=== PATIENT | female | born 1945 | race Caucasian/White ===

== ENCOUNTER 2017-07-04 01:49 | Inpatient (IN) | payer OTHER ==
[2017-07-04] VITALS (7 sets, daily range): BP systolic 92–152; BP diastolic 62–92; PULSE 69–140; TEMP 36–37.2; O2SAT 93–97; Ht 165.1 cm; Wt 82.8 kg
[~2017-07-04] VITALS: Ht 165.1 cm; Wt 82.8 kg
[~2017-07-04 01:49] MED LIST: BUDE180I; CALCTAB5 PO; DABI150C PO; GFNSR600 PO; HYDR12.55 PO; LPR25 PO; MAGN400T6 PO; MULT-506 PO; SNG10 PO; VITA400C15 PO; XPNIN INH; ZNTT/150 PO
[2017-07-04] MEDS ORDERED: METOPROLOL TARTRATE 1 MG/ML VIAL IV STA (02:06)
--- NOTE | 2017-07-04 02:15 | EMERGENCY ROOM VISIT NOTE ---
History Report prepared by [place]: Miguel Vaca Under the Supervision of: Dr. Rachell Carty D.O. First contact with patient: 01:56 Chief Complaint: TACHYCARDIA Stated Complaint: HEART RACING History of Present Illness The patient is a 71 year old female who presents to the Emergency Room with complaints of a persistent rapid heart rate that she first experienced after dinner this evening at 1900, 7 hours prior to arrival. The patient states that she tried to sit down and relax while watching television. She went to sleep at 2330 and woke up at 0030 and was still experiencing the rapid rate. The patient did have a similar episode 4 years ago and was diagnosed by her software release engineer with Atrial Flutter. She has not had any such episodes since then. She denies any urinary/bowel movement irregularities or abdominal pain. The patient was recently put on Prednisone by her PCP for asthma. Today is the 5th day she has taken this prescription. The patient takes Pradaxa as a blood thinner. 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 A total of 10 systems reviewed and were otherwise negative. Past Medical & Surgical Medical Problems: (1) ASTHMA, UNSPECIFIED (2) HX OF BREAST MALIGNANCY (3) HYPERTENSION NOS Family History Cancer Heart disease Hypertension Social History Smoking Status: Former Smoker Marital Status: Housing Status: lives with family Current/Historical Medications Scheduled Atorvastatin (Lipitor), 10 MG PO DAILY Budesonide (Inhalation) (Pulmicort Flexhaler), 1 PUFF BID Calcium Carbonate (Caltrate 600), 1,500 MG PO DAILY Dabigatran Etexilate Mesylate (Pradaxa), 150 MG PO Q12 Guaifenesin Ext Rel (Mucinex Ext Rel), 600 MG PO DAILY Hydrochlorothiazide (Hydrochlorothiazide), 12.5 MG PO DAILY Magnesium Oxide (Mag-Ox), 400 MG PO DAILY Metoprolol Tartrate (Lopressor), 12.5 MG PO BID Montelukast Sodium (Singulair), 10 MG PO DAILY Multiple Vitamins W/ Minerals (Centrum Silver Adult 50+), 1 TAB PO DAILY Ranitidine (Zantac), 300 MG PO HS Vitamin E (Vitamin E 400 Iu), 400 INTER.UNIT PO DAILY Scheduled PRN Ibuprofen (Advil), 200-600 MG PO Q4H PRN for Headache Levalbuterol Tartrate (Levalbuterol Tartrate Hfa), 2 PUFFS PO Q6 PRN for SOB/ Wheezing Allergies Coded Allergies: Lobster (Verified Allergy, Intermediate, NAUSEA & DIARRHEA, 07/04/17) Latex (Unverified Allergy, Mild, rash,itchy, 07/04/17) Physical Exam Vital Signs Date Time Temp Pulse Resp B/P (MAP) Pulse Ox O2 Delivery O2 Flow Rate FiO2 07/04/17 04:05 103 20 153/86 95 Room Air 07/04/17 03:08 86 20 114/73 95 Room Air 07/04/17 02:44 99 20 120/84 94 Room Air 07/04/17 02:35 126 20 141/106 95 Room Air 07/04/17 02:23 130 20 170/81 96 Room Air 07/04/17 02:20 95 Room Air 07/04/17 02:16 150 146/118 07/04/17 02:06 130 07/04/17 01:51 36.7 137 20 197/114 97 Room Air Physical Exam GENERAL: alert, well appearing, well nourished, no distress, non-toxic EYE EXAM: normal conjunctiva, PERRL and EOM's grossly intact OROPHARYNX: no exudate, no erythema, lips, buccal mucosa, and tongue normal and mucous membranes are moist NECK: supple, no nuchal rigidity, no adenopathy, non-tender LUNGS: Clear to auscultation. Normal chest wall mechanics HEART: Tachycardic and irregular. ABDOMEN: abdomen soft, non-tender, normo-active bowel sounds, no masses, no rebound or guarding. BACK: Back is symmetrical on inspection and there is no deformity, no midline tenderness, no CVA tenderness. SKIN: no rashes and no bruising UPPER EXTREMITIES: upper extremities are grossly normal. LOWER EXTREMITIES: No pitting edema. NEURO EXAM: Normal sensorium Medical Decision & Procedures ER Provider Diagnostic Interpretation: Radiology results have been interpreted and reviewed by me. CHEST X-RAY: A study of the chest was reviewed and was negative for infiltrate, effusion, pneumothorax, or wide mediastinum. Laboratory Results 07/04/17 02:10 Red Blood Count 4.75, Mean Corpuscular Volume 92.2, Mean Corpuscular Hemoglobin 30.1, Mean Corpuscular Hemoglobin Concent 32.6, Mean Platelet Volume 10.1, Neutrophils (%) (Auto) 67.5, Lymphocytes (%) (Auto) 24.2, Monocytes (%) (Auto) 7.2, Eosinophils (%) (Auto) 0.4, Basophils (%) (Auto) 0.3, Neutrophils # (Auto) 5.10, Lymphocytes # (Auto) 1.83, Monocytes # (Auto) 0.54, Eosinophils # (Auto) 0.03, Basophils # (Auto) 0.02 07/04/17 02:10 Test 07/04/17 02:10 07/04/17 03:10 White Blood Count 7.55 K/uL (4.8-10.8) Red Blood Count 4.75 M/uL (4.2-5.4) Hemoglobin 14.3 g/dL (12.0-16.0) Hematocrit 43.8 % (37-47) Mean Corpuscular Volume 92.2 fL (80-100) Mean Corpuscular Hemoglobin 30.1 pg (25-34) Mean Corpuscular Hemoglobin Concent 32.6 g/dl (32-36) Platelet Count 265 K/uL (130-400) Mean Platelet Volume 10.1 fL (7.4-10.4) Neutrophils (%) (Auto) 67.5 % Lymphocytes (%) (Auto) 24.2 % Monocytes (%) (Auto) 7.2 % Eosinophils (%) (Auto) 0.4 % Basophils (%) (Auto) 0.3 % Neutrophils # (Auto) 5.10 K/uL (1.4-6.5) Lymphocytes # (Auto) 1.83 K/uL (1.2-3.4) Monocytes # (Auto) 0.54 K/uL (0.11-0.59) Eosinophils # (Auto) 0.03 K/uL (0-0.5) Basophils # (Auto) 0.02 K/uL (0-0.2) RDW Standard Deviation 45.2 fL (36.4-46.3) RDW Coefficient of Variation 13.5 % (11.5-14.5) Immature Granulocyte % (Auto) 0.4 % Immature Granulocyte # (Auto) 0.03 K/uL (0.00-0.02) Prothrombin Time 13.9 SECONDS (9.0-12.0) Prothromb Time International Ratio 1.3 (0.9-1.1) Anion Gap 4.0 mmol/L (3-11) Est Creatinine Clear Calc Drug Dose 58.2 ml/min Estimated GFR () 68.6 Estimated GFR (Non- 59.2 BUN/Creatinine Ratio 26.1 (10-20) Calcium Level 8.9 mg/dl (8.5-10.1) Magnesium Level 2.2 mg/dl (1.8-2.4) Total Bilirubin 0.4 mg/dl (0.2-1) Aspartate Amino Transf (AST/SGOT) 14 U/L (15-37) Alanine Aminotransferase (ALT/SGPT) 24 U/L (12-78) Alkaline Phosphatase 73 U/L (45-117) Troponin I < 0.015 ng/ml (0-0.045) Total Protein 7.6 gm/dl (6.4-8.2) Albumin 3.6 gm/dl (3.4-5.0) Globulin 4.0 gm/dl (2.5-4.0) Albumin/Globulin Ratio 0.9 (0.9-2) Thyroid Stimulating Hormone (TSH) 1.810 uIu/ml (0.300-4.500) Urine Color YELLOW Urine Appearance CLEAR (CLEAR) Urine pH 7.5 (4.5-7.5) Urine Specific [place] 1.012 (1.000-1.030) Urine Protein NEG (NEG) Urine Glucose (UA) NEG (NEG) Urine Ketones NEG (NEG) Urine Occult Blood NEG (NEG) Urine Nitrite NEG (NEG) Urine Bilirubin NEG (NEG) Urine Urobilinogen NEG (NEG) Urine Leukocyte Esterase NEG (NEG) Laboratory results per my review. Medications Administered Medications (Trade) Dose Ordered Sig/Phil Route Start Time Stop Time Status Last Admin Dose Admin Metoprolol Tartrate (Lopressor Iv) 5 mg NOW STAT IV 07/04/17 02:06 07/04/17 02:09 DC 07/04/17 02:16 5 MG Diltiazem HCl (Cardizem Inj) 25 mg STK-MED ONCE .ROUTE 07/04/17 02:30 07/04/17 02:31 DC 07/04/17 02:36 15 MG Diltiazem HCl 125 mg/Dextrose 125 ml @ 0 mls/hr Q0M STAT IV 07/04/17 02:33 07/04/17 02:34 DC 07/04/17 02:41 5 MLS/HR ECG Indication: tachycardia (w RVR) Rate (beats per minute): 133 Rhythm: atrial fibrillation Findings: ST depression (Question ST-Depression in V4,V5,V6), other (Normal axis, Normal QRS) ED Course 0158: The patient was evaluated in room B2. A complete history and physical exam was performed. 0206: Ordered Metoprolol 5 mg IV. 0223: I reevaluated the patient at this time. She has had no improvement with Metoprolol, I will ordered Cardizem. 0225: Ordered Cardizem Bolus 125 mL @ Protocol IV. 0249: The nursing staff has informed me that the patient is much improved after Cardizem. 0315: I reevaluated the patient at this time. She if feeling much better. 0408: I checked on the patient at this time. She feels good, but the Cardizem drip needed to be bumped to 10. 0423: I discussed the case with Dr. Angelica Hubbard, he will evaluate the patient for further treatment. Medical Decision Differential diagnosis: Etiologies such as premature contractions, electrolyte abnormality, cardiac dysrhythmia, thyroid dysfunction, pulmonary embolism, infection, gastrointestinal, as well as others were entertained. Consults Time Called: [phone] Consulting Physician: Dr. Angelica Hubbard Returned Call: [phone] discussed the case with Dr. Angelica Hubbard, he will evaluate the patient for further treatment. Impression Primary Impression: Atrial fibrillation with RVR Additional Impression: Palpitations Critical Care I have personally spent 40 minutes of critical care time in the direct management of this patient. This includes bedside care, interpretation of diagnostic studies, and testing, discussion with consultants, patient, and family members, and other required patient management activities. This 40 minutes is in excess of all separately billable procedures. Scribe Attestation The scribe's documentation has been prepared under my direction and personally reviewed by me in its entirety. I confirm that the note above accurately reflects all work, treatment, procedures, and medical decision making performed by me. Departure Information Dispostion Being Evaluated By Hospitalist Referrals Cosme Willis M.D. (PCP) Patient Instructions My [facility] [address] Problem Qualifiers
[2017-07-04 02:21] LABS: BASO % 0.3 %; BASO ABS # 0.02 K/uL (0-0.2); EOS % 0.4 %; EOS ABS # 0.03 K/uL (0-0.5); HEMATOCRIT 43.8 % (37-47); HEMOGLOBIN 14.3 g/dL (12.0-16.0); IG# 0.03 K/uL (0.00-0.02); LYMPH % 24.2 %; LYMPH ABS # 1.83 K/uL (1.2-3.4); MEAN CELL VOLUME 92.2 fL (80-100); MEAN CORPUSCULAR HEMOGLOBIN 30.1 pg (25-34); MEAN CORPUSCULAR HGB CONC 32.6 g/dl (32-36); MEAN PLATELET VOLUME 10.1 fL (7.4-10.4); MONO % 7.2 %; MONO ABS # 0.54 K/uL (0.11-0.59); NEUT % 67.5 %; PLATELET COUNT 265 K/uL (130-400); RED CELL DISTRIBUTION WIDTH CV 13.5 % (11.5-14.5); RED CELL DISTRIBUTION WIDTH SD 45.2 fL (36.4-46.3); WHITE BLOOD COUNT 7.55 K/uL (4.8-10.8)
[2017-07-04] MEDS ORDERED: DILTIAZEM BOLUS / DRIP IV STA (02:25)
[2017-07-04 02:30] LABS: INR 1.3 (0.9-1.1)
[2017-07-04] MEDS ORDERED: DILTIAZEM HCL 5 MG/ML 5 ML VIAL ONE (02:30)
[2017-07-04] MEDS ORDERED: MULT-845 PO (02:33)
[2017-07-04] MEDS ORDERED: DILTIAZEM HCL INJ 125 MG in DEXTROSE 5% 100ML IV STA (02:33)
[2017-07-04] MEDS ORDERED: MONT1TAB3 PO (02:34)
[2017-07-04] MEDS ORDERED: GUAI1TAB55 PO (02:34)
[2017-07-04] MEDS ORDERED: VITA400C3 PO (02:34)
[2017-07-04] MEDS ORDERED: IBUP-1050 PO (02:34)
[2017-07-04] MEDS ORDERED: ATOR10TA82 PO (02:34)
[2017-07-04] MEDS ORDERED: LEVA45AE PO (02:35)
[2017-07-04] MEDS ORDERED: CALCTAB5 PO (02:35)
[2017-07-04 02:38] LABS: ALBUMIN 3.6 gm/dl (3.4-5.0); ALT/SGPT 24 U/L (12-78); AST/SGOT 14 U/L (15-37); BLOOD UREA NITROGEN 25 mg/dl (7-18); CALCIUM 8.9 mg/dl (8.5-10.1); CARBON DIOXIDE 31 mmol/L (21-32); CREATININE 0.97 mg/dl (0.60-1.20); GLUCOSE 101 mg/dl (70-99); POTASSIUM 3.7 mmol/L (3.5-5.1); SODIUM 139 mmol/L (136-145)
[2017-07-04 02:49] LABS: ALKALINE PHOSPHATASE 73 U/L (45-117); TOTAL PROTEIN 7.6 gm/dl (6.4-8.2)
[2017-07-04] MEDS ORDERED: POTASSIUM CHLORIDE 10 MEQ TABCR PO STA ×2 (04:32→09:32)
[2017-07-04] MEDS ORDERED: DILTIAZEM HCL INJ 125 MG in DEXTROSE 5% 100ML 100 ML IV SCH ×2 (05:15→09:30)
[2017-07-04] MEDS ORDERED: LEValbuterol HFA 15GM INHALER INH PRN (05:15)
[2017-07-04] MEDS ORDERED: ACETAMINOPHEN 325 MG TAB PO PRN (05:15)
[2017-07-04] MEDS ORDERED: NITROGLYCERIN 0.4 MG SL PER TAB CHARGE SL PRN (05:15)
[2017-07-04] MEDS ORDERED: METOPROLOL TARTRATE 25 MG TAB PO ONE (05:30)
[2017-07-04] MEDS ORDERED: NSS + 20MEQ KCL 1000ML 1,000 ML IV ONE (05:45)
--- NOTE | 2017-07-04 06:30 | DIAGNOSTIC IMAGING REPORT ---
HEAD WITHOUT CONTRAST (CT) CT DOSE: 537.48 mGy.cm HISTORY: Mental status change martinez TECHNIQUE: Multiaxial CT images of the head were performed without the use of intravenous contrast. A dose lowering technique was utilized adhering to the principles of ALARA. Comparison: None. Findings: The paranasal sinuses and mastoid air cells are clear. The calvarium and skull base are intact. The ventricles and sulci are within normal limits. There is no mass, hematoma, midline shift, or acute infarct. Impression: No acute intracranial abnormality. The above report was generated using voice recognition software. It may contain grammatical, syntax or spelling errors. Electronically signed by: Merlin Cosme M.D. 07/04/2017 6:28 AM Dictated Date/Time: 07/04/2017 6:27 AM
--- NOTE | 2017-07-04 06:31 | HISTORY & PHYSICAL EXAMINATION ---
DATE OF ADMISSION: 07/04/2017 PRIMARY CARE PHYSICIAN: Dr. Willis. CHIEF COMPLAINT: Palpitations, fast heart beat. HISTORY OF PRESENT ILLNESS: History obtained from patient and records. Medical history significant for AFib on anticoagulation, hypertension, asthma, endometrial cancer status post surgery, chemotherapy, past tobacco abuse. Recent confinement August 2012 for new onset AFib. Patient discharged on metoprolol and Pradaxa. The last 3 months, patient would note shortness of breath on exertion relieved by rescue inhaler use. Not a lot of cough symptoms as per patient. Occasional chest heaviness. Outpatient stress test was done, terminated due to fatigue, EF 55-60%, chest pain during study but did not limit exercise. Stress EKG response nonischemic. Patient saw her PCP last week for shortness of breath symptoms. Patient started on short prednisone course for asthma symptoms. Asthma symptoms improved. Intermittent achy headache symptoms across her head the last few days. No nausea, no vomiting. Last night, patient noted palpitations/heartbeat was going fast. No actual chest pain or shortness of breath. Usual 3 cups of coffee daily consumption, no unusual stress at home. Patient complaint with home medications. No unusual fluid retention. Limits herself to 2 puffs of Proventil at most daily. Patient unaware of BP control at home. Persistent symptoms prompted ER consultation. At the Emergency Room, the patient noted to be in rapid AFib, heart rate in the 130-150. IV metoprolol, IV Cardizem bolus/drip started. MEDICAL HISTORY: As above. SURGERIES: She has had hysterectomy, cholecystectomy. HOME MEDICATIONS: Include Zantac, vitamin E, albuterol, Lopressor, Singulair, mag ox, completed prednisone course. Lipitor, budesonide, Caltrate, Pradaxa, Mucinex, HCTZ. ALLERGIES: LOBSTER, LASIX. FAMILY HISTORY: heart disease. PERSONAL AND SOCIAL HISTORY: Past tobacco use, no chronic intake of alcoholic beverages. 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 REVIEW OF SYSTEMS: As per HPI. all 10 systems reviewed. All other ROS negative. PHYSICAL EXAMINATION: VITAL SIGNS: Blood pressure was noted to be initially 197/114, later 150/86, pulse rate was noted to be 130, later 105. GENERAL: Noted to be obese, no respiratory distress. SKIN: Normal color. Warm. HEENT: Portal palpebral conjuctivae. Dry mucosa. No ptosis. NECK: Short neck. No tenderness. CHEST: Clear to auscultation. No tenderness. HEART: Irregular. No murmur. ABDOMEN: Soft, nontender. EXTREMITIES: Minimal LE edema. No tenderness. No gross deformities. NEUROLOGIC: Coherent. No gross focality. LABORATORY DATA: Hemoglobin was noted to be 14.3, hematocrit 40.8, white cell count 9, platelets 265. Sodium 136, potassium 3.7, chloride 104, CO2 31, BUN 25, creatinine 0.9, glucose 101. Troponin negative, TSH within normal limits. Chest x-ray as per my interpretation atelectasis, cardiomegaly. EKG as per my interpretation rate 130, AFib, upsloping ST depression in lateral leads. ASSESSMENT: 1. Rapid atrial fibrillation possibly secondary to hypertensive urgency possibly from recent outpatient steroid course for asthma exacerbation. 2. Headache possible due hypertensive urgency, rule out intracranial bleed. 3. Asthma, currently not in exacerbation Symptoms coinciding with change of season. Improved dyspnea on exertion symptoms post steroid course. 4. Past tobacco abuse. 5. Endometrial cancer post-surgery, chemotherapy. PLAN: PCU Increase maintenance home beta latia dose wean off Cardizem drip started in the ER CT head RE headache. Cardio consult RE rapid AFib. (Patient known to Dr. Wisdom.) Further management of rapid A. fib as per Dr. Wisdom. Outpatient Pulmonology evaluation for dyspnea on exertion if symptoms continue to recur. DVT prophylaxis, Pradaxa, if no bleed on CT head. Full code. MTDD
--- NOTE | 2017-07-04 07:18 | DIAGNOSTIC IMAGING REPORT ---
CHEST ONE VIEW PORTABLE HISTORY: Short of breath. Palpitations. COMPARISON: Chest 09/13/2012. FINDINGS: The lungs are clear. Cardiac silhouette is top normal in size. No pleural effusions. No pneumothorax. A few bibasilar linear densities suggestive of scarring or atelectasis. IMPRESSION: No significant change compared to the prior study. No acute process. Electronically signed by: Bob Izaguirre M.D. 07/04/2017 7:17 AM Dictated Date/Time: 07/04/2017 7:15 AM
[2017-07-04] MEDS: CEROVITE ADV FORMULA TAB PO SCH (07:40)
[2017-07-04] MEDS: DABIGATRAN ELEXILATE 75 MG CAP PO SCH ×2 (07:40→21:15)
[2017-07-04] MEDS: BUDESONIDE 90 MCG INH INH SCH ×2 (07:41→21:00)
[2017-07-04] MEDS ORDERED: NURSING VERBAL MED ORDER ONE ×2 (08:00→09:15)
[2017-07-04] MEDS ORDERED: MONTELUKAST SOD 10 MG TAB PO SCH ×2 (09:00→21:00)
[2017-07-04] MEDS ORDERED: ATORVASTATIN 10 MG TAB PO SCH ×2 (09:00→21:00)
[2017-07-04] MEDS ORDERED: MAGNESIUM OXIDE 400 MG TAB PO SCH ×2 (09:00→21:00)
[2017-07-04] MEDS ORDERED: DILTIAZEM HCL 60 MG TAB PO ONE (09:32)
[2017-07-04] MEDS: GUAIFENESIN 600 MG TABCR PO SCH (10:22)
--- NOTE | 2017-07-04 10:46 | CARDIOLOGY CONSULTATION ---
DATE OF CONSULTATION: 07/04/2017 REFERRING PHYSICIAN: Dr. Nguyễn and Dr. Gonzalez. PRIMARY CARE PHYSICIAN: Dr. Willis. INDICATIONS: Atrial fibrillation with rapid ventricular response. HISTORY OF PRESENT ILLNESS: The patient is a 71-year-old female who carries a history of past paroxysmal atrial fibrillation, dyslipidemia, hypertension, asthmatic lung disease, recent difficulties with increased wheezing and exacerbation of underlying pulmonary issues worse with colder weather, notes approximately 2-3 month history of worsening complaints and underwent stress echocardiography without signs or symptoms of stress induced ischemia, was seen by her primary care physician approximately 1 week ago and begun on a pulse of oral prednisone at 40 mg per day as well as increased frequency of usual rescue inhalers. The patient yesterday evening began experiencing symptoms of headache and palpitations. Symptoms were consistent with her past atrial fibrillation. She attempted to convert herself with using typical Valsalva maneuvers, but was unable to do so successfully. She presented to the Emergency Room, where she was found to be in atrial fibrillation with rapid ventricular response at rates 130-150 with substantially elevated blood pressures as well. She noted no recent fevers or chills. Noted no chest pains. Noted not sense of heaviness and wheezing when walking in cold weather. Notes no worsening edema. Weight is up just slightly. Notes no unexplained fevers or infections. Notes no melena, hematochezia, dysuria or hematuria. She has been chronically anticoagulated with Pradaxa without difficulty. She has been taking medications as prescribed. Headache has improved this morning, though was significantly present last evening and associated with elevated blood pressures. CT scan of the head done during ER evaluation was negative. REVIEW OF SYSTEMS: Otherwise negative. ALLERGIES: LATEX AND LOBSTER. MEDICATIONS PRIOR TO HOSPITALIZATION: Atorvastatin 10 mg p.o. q. day, Pulmicort inhaler 1 puff b.i.d., calcium carbonate 1500 mg p.o. q. day, Pradaxa 150 mg q. 12 hours, Mucinex inhaler, hydrochlorothiazide 12.5 mg p.o. q. day, ibuprofen p.r.n. headache, levalbuterol 2 puffs q. 6 hours p.r.n., Mag-Ox 400 mg p.o. q. day, metoprolol tartrate 12.5 mg twice per day, Singulair 10 mg q. day, multivitamin per day, ranitidine 300 mg at bedtime and vitamin E supplements. PAST SURGICAL HISTORY: Notable for right knee arthroscopic surgery, past laparoscopic cholecystectomy, and a remote history of total abdominal hysterectomy in the setting of uterine carcinoma in 1997. FAMILY HISTORY: Positive for heart failure in mother and hypertension in brother and sister. SOCIAL HISTORY: The patient resides in [place]. She is a nonsmoker and rare alcohol user. She is generally active about her home. PHYSICAL EXAMINATION: VITAL SIGNS: Heart rate is currently 80, blood pressure is 132/83 with equal blood pressures in both arms, and O2 saturation is 97% on room air. HEENT: Normocephalic and atraumatic. Nares without discharge. Throat was clear. NECK: Without jugular venous distention or carotid bruits. Carotid pulses are 2/4 without delay. LUNGS: Reveal mildly diminished breath sounds with wheezes on forced cough, greater anteriorly. CARDIOVASCULAR: Irregularly irregular. There is no S3 gallop. ABDOMEN: Soft and nontender. There is no palpable hepatosplenomegaly. There is no hepatojugular reflux. EXTREMITIES: Without cyanosis or clubbing. There is no peripheral edema. There are intact distal pulses. There is no brachial femoral delay. NEUROLOGIC: The patient is alert and answering questions appropriately. DIAGNOSTIC DATA: EKG on presentation to the Emergency Room revealed atrial fibrillation with elevated ventricular response rate. Rate 133. Nonspecific ST segment changes in the inferior and lateral leads. LABORATORY STUDIES: Sodium is 139, potassium is 3.7, chloride is 104, bicarbonate is 31, BUN is 25, and creatinine is 0.97. AST and ALT are normal. TSH is 1.8. White cell count 7.5, hemoglobin is 14.3, and platelet count is 265,000. Chest x-ray revealed no infiltrate or edema. CT scan of the head revealed no acute processes. IMPRESSION: The patient is a 71-year-old female who carries a history of known paroxysmal atrial fibrillation, underlying asthmatic lung disease with recent symptoms of chest fullness and wheezing in colder weather with negative stress testing in February of 2017. The patient had a recent intensification of asthmatic medications including pulse prednisone at 40 mg per day x5 days. She presents now with relapse into atrial fibrillation and hypertensive urgency on initial presentation. Rates have come under control. IV diltiazem discussed as she is chronically anticoagulated with Pradaxa. RECOMMENDATIONS: We will wean off IV diltiazem. Discontinue metoprolol. Begin on diltiazem 60 mg t.i.d. Potassium will be supplemented. The patient will be maintained on monitor overnight. The patient is to be kept n.p.o. after midnight if atrial fibrillation persists. In the past, she has spontaneously converted in similar settings. Suspect inciting cause of her beta agonists and prednisone pulse. No acute enzymatic release to suggest myocardial ischemia.
[2017-07-04] MEDS: DILTIAZEM HCL 60 MG TAB PO SCH ×2 (12:13→21:14)
--- NOTE | 2017-07-04 18:12 | Progress Note ---
Internal Med Progress Note Date of Service: Jul 04, 2017. Provider Documentation: SUBJECTIVE: resting comfortably has some chest tightness afebrile no sob says recent treatment for her asthma exacerbated her a fib OBJECTIVE: Vital Signs-as noted below Exam: General-alert and oriented. Not in distress ENT-Normal hearing Neck-no neck masses supple Lungs-Normal breath sounds no rhonchi present no crackles present Heart-S1 and S2 heard irregular rthym, no murmurs Abdomen-Soft bowel sounds present non tender non distended Extremities-no edema no erythema Neuro-alert and awake moves extremities Lab data as noted below. ASSESSMENT & PLAN: 1. Rapid atrial fibrillation possibly secondary to recent outpatient steroid course for asthma exacerbation and b latia initially was on Cardizem drip currently b latia changed to po Cardizem po on Pradaxa continue to monitor on tele 2. Headache possible due hypertensive urgency, ct hrad negative no complaints today. 3. Asthma, currently not in exacerbation stable. 4. Past tobacco abuse. 5. Endometrial cancer post-surgery, chemotherapy. DVT PROPHYLAXIS Pradaxa DISPOSITION monitor in tele to be determined Vital Signs: Date Time Temp Pulse Resp B/P (MAP) Pulse Ox O2 Delivery O2 Flow Rate FiO2 07/04/17 16:00 Room Air 07/04/17 15:53 36.9 70 20 136/68 (90) 97 Room Air 07/04/17 12:14 140 128/75 (92) 07/04/17 12:00 Room Air 07/04/17 11:56 36.0 120 22 92/62 (72) 94 Room Air 07/04/17 08:00 Room Air 07/04/17 07:49 36.9 70 20 132/83 (99) 97 Room Air 07/04/17 05:30 36.6 100 18 152/92 95 Room Air 07/04/17 05:01 94 20 123/71 98 Room Air 07/04/17 04:05 103 20 153/86 95 Room Air 07/04/17 03:08 86 20 114/73 95 Room Air 07/04/17 02:44 99 20 120/84 94 Room Air 07/04/17 02:35 126 20 141/106 95 Room Air 07/04/17 02:23 130 20 170/81 96 Room Air 07/04/17 02:20 95 Room Air 07/04/17 02:16 150 146/118 07/04/17 02:06 130 07/04/17 01:51 36.7 137 20 197/114 97 Room Air Lab Results: Results Past 24 Hours Test 07/04/17 02:10 07/04/17 03:10 07/04/17 06:38 Range/Units White Blood Count 7.55 4.8-10.8 K/uL Red Blood Count 4.75 4.2-5.4 M/uL Hemoglobin 14.3 12.0-16.0 g/dL Hematocrit 43.8 37-47 % Mean Corpuscular Volume 92.2 80-100 fL Mean Corpuscular Hemoglobin 30.1 25-34 pg Mean Corpuscular Hemoglobin Concent 32.6 32-36 g/dl Platelet Count 265 130-400 K/uL Mean Platelet Volume 10.1 7.4-10.4 fL Neutrophils (%) (Auto) 67.5 % Lymphocytes (%) (Auto) 24.2 % Monocytes (%) (Auto) 7.2 % Eosinophils (%) (Auto) 0.4 % Basophils (%) (Auto) 0.3 % Neutrophils # (Auto) 5.10 1.4-6.5 K/uL Lymphocytes # (Auto) 1.83 1.2-3.4 K/uL Monocytes # (Auto) 0.54 0.11-0.59 K/uL Eosinophils # (Auto) 0.03 0-0.5 K/uL Basophils # (Auto) 0.02 0-0.2 K/uL RDW Standard Deviation 45.2 36.4-46.3 fL RDW Coefficient of Variation 13.5 11.5-14.5 % Immature Granulocyte % (Auto) 0.4 % Immature Granulocyte # (Auto) 0.03 0.00-0.02 K/uL Prothrombin Time 13.9 9.0-12.0 SECONDS Prothromb Time International Ratio 1.3 0.9-1.1 Sodium Level 139 136-145 mmol/L Potassium Level 3.7 3.5-5.1 mmol/L Chloride Level 104 98-107 mmol/L Carbon Dioxide Level 31 21-32 mmol/L Anion Gap 4.0 3-11 mmol/L Blood Urea Nitrogen 25 7-18 mg/dl Creatinine 0.97 0.60-1.20 mg/dl Est Creatinine Clear Calc Drug Dose 58.2 ml/min Estimated GFR () 68.6 Estimated GFR (Non- 59.2 BUN/Creatinine Ratio 26.1 10-20 Random Glucose 101 70-99 mg/dl Calcium Level 8.9 8.5-10.1 mg/dl Magnesium Level 2.2 1.8-2.4 mg/dl Total Bilirubin 0.4 0.2-1 mg/dl Aspartate Amino Transf (AST/SGOT) 14 15-37 U/L Alanine Aminotransferase (ALT/SGPT) 24 12-78 U/L Alkaline Phosphatase 73 45-117 U/L Troponin I < 0.015 0-0.045 ng/ml Total Protein 7.6 6.4-8.2 gm/dl Albumin 3.6 3.4-5.0 gm/dl Globulin 4.0 2.5-4.0 gm/dl Albumin/Globulin Ratio 0.9 0.9-2 Thyroid Stimulating Hormone (TSH) 1.810 0.300-4.500 uIu/ml Urine Color YELLOW Urine Appearance CLEAR CLEAR Urine pH 7.5 4.5-7.5 Urine Specific [place] 1.012 1.000-1.030 Urine Protein NEG NEG Urine Glucose (UA) NEG NEG Urine Ketones NEG NEG Urine Occult Blood NEG NEG Urine Nitrite NEG NEG Urine Bilirubin NEG NEG Urine Urobilinogen NEG NEG Urine Leukocyte Esterase NEG NEG Hepatitis C Antibody Screen NEG NEG
[2017-07-04] MEDS ORDERED: METOPROLOL TARTRATE 25 MG TAB PO SCH (21:00)
[2017-07-04] MEDS ORDERED: RANITIDINE HCL 150 MG TAB PO SCH (21:00)
[2017-07-05 03:50] VITALS: BP 126/75; PULSE 72; TEMP 37.1; O2SAT 95
[2017-07-05 07:25] VITALS: BP 126/80; PULSE 79; TEMP 37.1; O2SAT 94
[2017-07-05 07:33] LABS: BASO % 1.2 %; BASO ABS # 0.09 K/uL (0-0.2); EOS ABS # 0.23 K/uL (0-0.5); HEMATOCRIT 41.3 % (37-47); HEMOGLOBIN 13.5 g/dL (12.0-16.0); IG# 0.03 K/uL (0.00-0.02); LYMPH % 26.5 %; LYMPH ABS # 2.01 K/uL (1.2-3.4); MEAN CELL VOLUME 93.9 fL (80-100); MEAN CORPUSCULAR HEMOGLOBIN 30.7 pg (25-34); MEAN CORPUSCULAR HGB CONC 32.7 g/dl (32-36); MONO % 7.2 %; MONO ABS # 0.55 K/uL (0.11-0.59); NEUT % 61.7 %; NEUT ABS # 4.68 K/uL (1.4-6.5); PLATELET COUNT 233 K/uL (130-400); RED CELL DISTRIBUTION WIDTH CV 14.1 % (11.5-14.5); RED CELL DISTRIBUTION WIDTH SD 48.3 fL (36.4-46.3); WHITE BLOOD COUNT 7.59 K/uL (4.8-10.8)
[2017-07-05] MEDS ORDERED: DILTIAZEM HCL 180 MG ER CAP PO SCH (09:00)
--- NOTE | 2017-07-05 09:33 | PROGRESS NOTE ---
DATE: 07/05/2017 The patient seen and examined. Chart, medications, telemetry reviewed. SUBJECTIVE: The patient feels well this morning, spontaneously converted to sinus rhythm yesterday afternoon at approximately 1:00 p.m. No further recurrences of atrial arrhythmias of significance since that time. Notes no dizziness or lightheadedness. Asthmatic lung disease appears stable. Notes no chest pain or discomfort. She has been ambulatory in room and hallway. OBJECTIVE: VITAL SIGNS: Heart rate is 79, blood pressure is 126/80. HEENT: Normocephalic, atraumatic. Nares without discharge. NECK: Thin. There is no jugular venous distention. LUNGS: Reveal mildly diminished breath sounds with few wheezes and forced cough. CARDIOVASCULAR: Regular with normal S1, S2, no murmur, gallop or rub. ABDOMEN: Soft, nontender. EXTREMITIES: Without cyanosis or clubbing. There is no peripheral edema. There are intact distal pulses. IMPRESSION: A 71-year-old female with a history of paroxysmal atrial fibrillation, admitted with exacerbation of rapid rhythm with spontaneous conversion to sinus rhythm on oral diltiazem. RECOMMENDATIONS: Blood pressure is well controlled. Heart rates controlled without further arrhythmias. Will discontinue beta latia given asthmatic issues. Discharge planned today on extended release diltiazem 180 mg per day, Pradaxa as chronic usage. Would continue to hold Singulair for at least 2-3 weeks. Continue inhaled corticosteroid of Pulmicort. Treatment of underlying asthma issues as planned. Would not resume prednisone. Given mild hypokalemia on presentation and use of chronic diuretic with hydrochlorothiazide, would add low dose potassium supplement 10 mEq per day to chronic regimen. This was discussed in detail. She will follow up with Dr. Wisdom as an outpatient. [facility] CENTERCarlie
[2017-07-05] MEDS: BUDESONIDE 90 MCG INH INH SCH (09:35)
[2017-07-05] MEDS: CEROVITE ADV FORMULA TAB PO SCH (09:57)
[2017-07-05] MEDS: GUAIFENESIN 600 MG TABCR PO SCH (09:57)
[2017-07-05] MEDS: DABIGATRAN ELEXILATE 75 MG CAP PO SCH (09:57)
--- NOTE | 2017-07-05 10:28 | Progress Note ---
Medicine Progress Note Date & Time of Visit: Jul 05, 2017 at 10:19. Subjective patient seen resting in bedside chair, having breakfast states she feels better overall denies palpitations, chest pain breathing is fine,ambulated in the halls with no problems, has some mild chest tightness, improving after using Pulmicort this AM denies other symptoms states she is ready and would like to be discharged today no other symptoms Objective Last 8 Hrs Date Time Temp Pulse Resp B/P (MAP) Pulse Ox O2 Delivery O2 Flow Rate FiO2 07/05/17 08:00 Room Air 07/05/17 07:25 37.1 79 16 126/80 (95) 94 Room Air 07/05/17 04:00 Room Air 07/05/17 03:50 37.1 72 15 126/75 (92) 95 Room Air Physical Exam: General- oriented x 3, not in distress, speaks in sentences with no effort Head- atraumatic Eyes- EOMI, anicteric ENT- oropharynx clear Neck- supple, no JVD, no adenopathy, no thyromegaly Lungs- clear to auscultation bilaterally, no rales/wheezes Heart- regular rhythm; no murmur, normal rate Abdomen- normal bowel sounds, soft, nontende Extremities- no pretibial edema, no calf tenderness Neuro- alert, oriented x 3; no gross focal deficits Skin- warm & dry Laboratory Results: Last 24 Hours Test 07/05/17 06:41 White Blood Count 7.59 K/uL Red Blood Count 4.40 M/uL Hemoglobin 13.5 g/dL Hematocrit 41.3 % Mean Corpuscular Volume 93.9 fL Mean Corpuscular Hemoglobin 30.7 pg Mean Corpuscular Hemoglobin Concent 32.7 g/dl Platelet Count 233 K/uL Mean Platelet Volume 10.0 fL Neutrophils (%) (Auto) 61.7 % Lymphocytes (%) (Auto) 26.5 % Monocytes (%) (Auto) 7.2 % Eosinophils (%) (Auto) 3.0 % Basophils (%) (Auto) 1.2 % Neutrophils # (Auto) 4.68 K/uL Lymphocytes # (Auto) 2.01 K/uL Monocytes # (Auto) 0.55 K/uL Eosinophils # (Auto) 0.23 K/uL Basophils # (Auto) 0.09 K/uL RDW Standard Deviation 48.3 fL RDW Coefficient of Variation 14.1 % Immature Granulocyte % (Auto) 0.4 % Immature Granulocyte # (Auto) 0.03 K/uL Assessment & Plan ATRIAL FIBRILLATION, IN RAPID VENTRICULAR RESPONSE, RESOLVED - from recent outpatient steroid course for asthma exacerbation? - evaluated by Center Consultant Dr. Magallanes initially was on Cardizem drip Metoprolol 12.5mg po BID changed to Diltiazem 180mg po daily Pradaxa continued - patient converted spontaneously to Sinus Rhythm on hospital day 1 - Cardiology recommendations: change Metoprolol 12.5mg po bid to Diltiazem 180mg po daily Potassium 10 meqs po daily hold Montelukast for at least 2-3 weeks discontinue Prednisone ff up with Dr. Wisdom in 1-2 weeks ASTHMA - denies dyspnea, has occasional chest tightness ambulates in the hallways with no problems - CXR no infiltrates - offered trial of Advair - patient prefers to use Pulmicort BID and PRN Levalbuterol for now Headache possible due hypertensive urgency, - Ct head negative resolved Past tobacco abuse. Endometrial cancer post-surgery, chemotherapy. Disposition d/c home today ff up with PCP Dr. Willis tomorrow at 105pm Current Inpatient Medications: Current Inpatient Medications Medications (Trade) Dose Ordered Sig/Phil Route Start Time Stop Time Status Last Admin Dose Admin Acetaminophen (Tylenol Tab) 650 mg Q4H PRN PO 07/04/17 05:15 08/03/17 05:14 Nitroglycerin (Nitrostat Tab) 0.4 mg UD PRN SL 07/04/17 05:15 08/03/17 05:14 Levalbuterol (Xopenex Hfa Inhaler) 2 puffs Q4H PRN INH 07/04/17 05:15 08/03/17 05:14 Multivitamins/ Minerals (Multivitamin W/ Minerals Tab) 1 tab DAILY PO 07/04/17 09:00 08/03/17 08:59 07/05/17 09:57 1 TAB Ranitidine HCl (zANTac TAB) 300 mg HS PO 07/04/17 21:00 08/03/17 20:59 07/04/17 21:15 300 MG Budesonide (Pulmicort Inhaler) 2 puffs BID INH 07/04/17 09:00 08/03/17 08:59 07/05/17 09:35 2 PUFFS Dabigatran (Pradaxa Cap) 150 mg Q12 PO 07/04/17 09:00 08/03/17 08:59 07/05/17 09:57 150 MG Atorvastatin Calcium (Lipitor Tab) 10 mg HS PO 07/04/17 21:00 08/03/17 20:59 07/04/17 21:14 10 MG Magnesium Oxide (Mag-Ox Tab) 400 mg HS PO 07/04/17 21:00 08/03/17 20:59 07/04/17 21:14 400 MG Guaifenesin (Mucinex Contr Rel Tab) 600 mg DAILY PO 07/04/17 09:00 08/03/17 08:59 07/05/17 09:57 600 MG Diltiazem HCl 125 mg/Dextrose 125 ml @ 0 mls/hr Q0M IV 07/04/17 09:30 08/03/17 09:29 Diltiazem HCl (Dilacor Xr Cap) 180 mg QAM PO 07/05/17 09:00 08/04/17 08:59 07/05/17 09:36 180 MG Potassium Chloride (Klor-Con M10) 10 meq DAILY PO 07/06/17 09:00 08/05/17 08:59 UNV
[2017-07-05] MEDS ORDERED: POTA10CA28 PO (10:29)
[2017-07-05] MEDS ORDERED: DLCSR180 PO (10:29)
--- NOTE | 2017-07-05 10:34 | Discharge Instructions ---
Discharge Instructions Date of Service Jul 05, 2017. Admission Reason for Admission: Rapid Atrial Fibrillation Discharge Discharge Diagnosis / Problem: Atrial Fibrillation in Rapid Ventricular Response Discharge Goals Goal(s): Diagnostic testing, Therapeutic intervention Activity Recommendations Activity Limitations: as noted below (no heavy exertion until re-evaluated by Primary Care Physician) . Instructions / Follow-Up Instructions / Follow-Up PLEASE REVIEW YOUR NEW MEDICATION LIST AND FOLLOW INSTRUCTIONS CAREFULLY. RETURN TO ER IMMEDIATELY IF WITH RECURRENCE OF SYMPTOMS. FOLLOW UP WITH PRIMARY CARE PHYSICIAN DR. SANTIAGO, TOMORROW 07/06/17 AT 1:05PM. FOLLOW UP WITH [facility] IN 1-2 WEEKS. Current Hospital Diet Patient's current hospital diet: AHA Diet (Heart Healthy) Discharge Diet Recommended Diet: AHA Diet (Heart Healthy) Pending Studies Studies pending at discharge: no Medical Emergencies . Who to Call and When: Medical Emergencies: If at any time you feel your situation is an emergency, please call 911 immediately. . Non-Emergent Contact Non-Emergency issues call your: Primary Care Provider, Foil Spinner Call Non-Emergent contact if: you have a fever, you have any medication questions . . "Provider Documentation" section prepared by Juanito Schrader. . VTE Core Measure Inpt VTE Proph given/why not?: Other Anticoagulation (PRADAXA)
[2017-07-05 10:44] VITALS: BP 126/80; PULSE 79; TEMP 37.1; O2SAT 94
--- NOTE | 2017-07-05 10:48 | Discharge Summary ---
Discharge Summary Date of Service Jul 05, 2017. Discharge Summary Admission Date: Jul 04, 2017 at 04:39 Discharge Date: Jul 05, 2017 Discharge Disposition: Home Principal Diagnosis: ATRIAL FIBRILLATION, IN RAPID VENTRICULAR RESPONSE, RESOLVED Secondary Diagnoses/Problems: Please refer to hospital course below for further details. Procedures: HEAD WITHOUT CONTRAST (CT) CT DOSE: 537.48 mGy.cm HISTORY: Mental status change martinez TECHNIQUE: Multiaxial CT images of the head were performed without the use of intravenous contrast. A dose lowering technique was utilized adhering to the principles of ALARA. Comparison: None. Findings: The paranasal sinuses and mastoid air cells are clear. The calvarium and skull base are intact. The ventricles and sulci are within normal limits. There is no mass, hematoma, midline shift, or acute infarct. Impression: No acute intracranial abnormality. CHEST ONE VIEW PORTABLE HISTORY: Short of breath. Palpitations. COMPARISON: Chest 09/13/2012. FINDINGS: The lungs are clear. Cardiac silhouette is top normal in size. No pleural effusions. No pneumothorax. A few bibasilar linear densities suggestive of scarring or atelectasis. IMPRESSION: No significant change compared to the prior study. No acute process. Consultations: Radiology Services Manager Dr. Magallanes Pending Studies/Follow-Up: Please refer to hospital course below. Medication Reconciliation New Medications: Diltiazem HCl (Diltiazem HCl ER) 180 Mg Caper 180 MG PO QAM for 30 Days, #30 TABS 2 Refills Potassium Chloride (Micro-K Ext Rel) 10 Meq Capcr 10 MEQ PO DAILY for 30 Days, #30 TABS 2 Refills Continued Medications: Atorvastatin (Lipitor) 10 Mg Tab 10 MG PO DAILY, TAB Budesonide (Inhalation) (Pulmicort Flexhaler) 180 Mcg/Act Inh 1 PUFF BID Calcium Carbonate (Caltrate 600) 1,500 Mg Tab 1500 MG PO DAILY Dabigatran Etexilate Mesylate (Pradaxa) 150 Mg Cap 150 MG PO Q12, CAP Guaifenesin Ext Rel (Mucinex Ext Rel) 600 Mg Tab 600 MG PO DAILY, TAB Hydrochlorothiazide (Hydrochlorothiazide) 12.5 Mg Tab 12.5 MG PO DAILY Ibuprofen (Advil) 200 Mg Tab 200-600 MG PO Q4H PRN for Headache, TAB Levalbuterol Tartrate (Levalbuterol Tartrate Hfa) 45 Mcg/Act Aer 2 PUFFS PO Q6 PRN for SOB/Wheezing Magnesium Oxide (Mag-Ox) 400 Mg Tab 400 MG PO DAILY, 0 Refills Multiple Vitamins W/ Minerals (Centrum Silver Adult 50+) 1 Tab Tab 1 TAB PO DAILY Ranitidine (Zantac) 150 Mg Tab 300 MG PO HS, TAB Vitamin E (Vitamin E 400 Iu) 400 Unit Cap 400 INTER.UNIT PO DAILY, CAP Discontinued Medications: Metoprolol Tartrate (Lopressor) 25 Mg Tab 12.5 MG PO BID, TAB Montelukast Sodium (Singulair) 10 Mg Tab 10 MG PO DAILY, TAB Admission Information HPI (per Admitting provider): DATE OF ADMISSION: 07/04/2017 PRIMARY CARE PHYSICIAN: Dr. Santiago. CHIEF COMPLAINT: Palpitations, fast heart beat. HISTORY OF PRESENT ILLNESS: History obtained from patient and records. Medical history significant for AFib on anticoagulation, hypertension, asthma, endometrial cancer status post surgery, chemotherapy, past tobacco abuse. Recent confinement August 2012 for new onset AFib. Patient discharged on metoprolol and Pradaxa. The last 3 months, patient would note shortness of breath on exertion relieved by rescue inhaler use. Not a lot of cough symptoms as per patient. Occasional chest heaviness. Outpatient stress test was done, terminated due to fatigue, EF 55-60%, chest pain during study but did not limit exercise. Stress EKG response nonischemic. Patient saw her PCP last week for shortness of breath symptoms. Patient started on short prednisone course for asthma symptoms. Asthma symptoms improved. Intermittent achy headache symptoms across her head the last few days. No nausea, no vomiting. Last night, patient noted palpitations/heartbeat was going fast. No actual chest pain or shortness of breath. Usual 3 cups of coffee daily consumption, no unusual stress at home. Patient complaint with home medications. No unusual fluid retention. Limits herself to 2 puffs of Proventil at most daily. Patient unaware of BP control at home. Persistent symptoms prompted ER consultation. At the Emergency Room, the patient noted to be in rapid AFib, heart rate in the 130-150. IV metoprolol, IV Cardizem bolus/drip started. Physical Exam (per Admitting): VITAL SIGNS: Blood pressure was noted to be initially 197/114, later 150/86, pulse rate was noted to be 130, later 105. GENERAL: Noted to be obese, no respiratory distress. SKIN: Normal color. Warm. HEENT: [place] palpebral conjuctivae. Dry mucosa. No ptosis. NECK: Short neck. No tenderness. CHEST: Clear to auscultation. No tenderness. HEART: Irregular. No murmur. ABDOMEN: Soft, nontender. EXTREMITIES: Minimal LE edema. No tenderness. No gross deformities. NEUROLOGIC: Coherent. No gross focality. Hospital Course ATRIAL FIBRILLATION, IN RAPID VENTRICULAR RESPONSE, RESOLVED - from recent outpatient steroid course for asthma exacerbation? - evaluated by Radiology Services Manager Dr. Magallanes initially was on Cardizem drip then Metoprolol 12.5mg po BID changed to Diltiazem 180mg po daily Pradaxa continued - patient converted spontaneously to Sinus Rhythm on hospital day 1 - Cardiology recommendations: change Metoprolol 12.5mg po bid to Diltiazem 180mg po daily Potassium 10 meqs po daily hold Montelukast for at least 2-3 weeks discontinue Prednisone ff up with Dr. Wisdom in 1-2 weeks ASTHMA - denies dyspnea, has occasional chest tightness although, ambulates in the hallways with no problems - CXR no infiltrates - offered trial of Advair - patient prefers to use Pulmicort BID and PRN Levalbuterol for now close ff up with PCP Headache possible due hypertensive urgency, - Ct head negative resolved Past tobacco abuse. Endometrial cancer post-surgery, chemotherapy. Disposition d/c home today ff up with PCP Dr. Santiago tomorrow at 105pm Total time spent on discharge = 30 minutes This includes examination of the patient, discharge planning, medication reconciliation, and communication with other providers. Discharge Instructions Discharge Instructions Date of Service Jul 05, 2017. Admission Reason for Admission: Rapid Atrial Fibrillation Discharge Discharge Diagnosis / Problem: Atrial Fibrillation in Rapid Ventricular Response Discharge Goals Goal(s): Diagnostic testing, Therapeutic intervention Activity Recommendations Activity Limitations: as noted below (no heavy exertion until re-evaluated by Primary Care Physician) . Instructions / Follow-Up Instructions / Follow-Up PLEASE REVIEW YOUR NEW MEDICATION LIST AND FOLLOW INSTRUCTIONS CAREFULLY. RETURN TO ER IMMEDIATELY IF WITH RECURRENCE OF SYMPTOMS. FOLLOW UP WITH PRIMARY CARE PHYSICIAN DR. SANTIAGO, TOMORROW 07/06/17 AT 1:05PM. FOLLOW UP WITH [facility] IN 1-2 WEEKS. Current Hospital Diet Patient's current hospital diet: AHA Diet (Heart Healthy) Discharge Diet Recommended Diet: AHA Diet (Heart Healthy) Pending Studies Studies pending at discharge: no Medical Emergencies . Who to Call and When: Medical Emergencies: If at any time you feel your situation is an emergency, please call 911 immediately. . Non-Emergent Contact Non-Emergency issues call your: Primary Care Provider, Radiology Services Manager Call Non-Emergent contact if: you have a fever, you have any medication questions . . "Provider Documentation" section prepared by Juanito Schrader. . VTE Core Measure Inpt VTE Proph given/why not?: Other Anticoagulation (PRADAXA)
[2017-07-06] MEDS ORDERED: POTASSIUM CHLORIDE 10 MEQ TABCR PO SCH (09:00)
== END 2017-07-05 11:01 | disposition home or self-care (01) | DRG 310 ==
LOC: C.EDB 01:51 → C.2T 04:39 → ENRESERV 04:48
PROVIDERS: ADMIT Internal Medicine; ATTEND Internal Medicine
DX: I48.91 Unspecified atrial fibrillation (principal); J45.909 Unspecified asthma, uncomplicated; I10 Essential (primary) hypertension; I16.0 Hypertensive urgency; Z82.49 Family history of ischemic heart disease and other diseases of the circulatory system; Z87.891 Personal history of nicotine dependence; Z79.01 Long term (current) use of anticoagulants; Z85.42 Personal history of malignant neoplasm of other parts of uterus

== ENCOUNTER → 2017-07-19 | Outpatient (CLI) | payer OTHER ==
[~2017-07-19] MED LIST changes: +ATOR10TA82 PO; +DLCSR180 PO; -GFNSR600 PO; +GUAI1TAB55 PO; +IBUP-1050 PO; +LEVA45AE PO; -LPR25 PO; -MULT-506 PO; +MULT-845 PO; +POTA10CA28 PO; -SNG10 PO; -VITA400C15 PO; +VITA400C3 PO; -XPNIN INH
--- NOTE | 2017-07-20 15:39 | MAMMOGRAPHY REPORT ---
BILATERAL DIGITAL SCREENING MAMMOGRAM TOMOSYNTHESIS WITH CAD: 07/19/2017 CLINICAL HISTORY: Routine screening. TECHNIQUE: Breast tomosynthesis in addition to standard 2D mammography was performed. Current study was also evaluated with a Computer Aided Detection (CAD) system. COMPARISON: Comparison is made to exams dated: 06/16/2016 mammogram, 06/13/2015 mammogram, 4 mammogram, 06/06/2013 mammogram, 06/05/2012 mammogram, and 06/04/2011 mammogram - [facility]. BREAST COMPOSITION: There are scattered areas of fibroglandular density in both breasts. FINDINGS: There are mild vascular calcifications and benign rim calcifications in the breasts. No ballard spicious mass, architectural distortion or cluster of microcalcifications is seen. IMPRESSION: ACR BI-RADS CATEGORY 1: NEGATIVE There is no mammographic evidence of malignancy. A 1 year screening mammogram is recommended. The pa tient will receive written notification of the results. Approximately 10% of breast cancers are not detected with mammography. A negative mammographic report should not delay biopsy if a clinically suggestive mass is present. Mouna Bonds M.D. ay/:07/19/2017 19:12:53 Resolution Expert: Alida HULL(Michelle)(Ab), [facility] letter sent: Normal 1/2 BI-RADS Code: ACR BI-RADS Category 1: Negative
== END | disposition home or self-care (01) ==
LOC: C.MAMM 11:33
PROVIDERS: ATTEND Family Medicine
DX: Z12.31 Encounter for screening mammogram for malignant neoplasm of breast (principal)